=== PATIENT | female | born 1980 | race Caucasian/White ===

== ENCOUNTER 2017-01-18 10:25 | Emergency (ER) | payer OTHER ==
--- NOTE | ~2017-01-18 | CR63 ---
[facility] A Service of [facility] RADIOLOGY TEXT RESULTS PATIENT: TRINO DUVALL LOCATION: [facility] : 76 UNIT #: [id number] AGE: [address]: Chris Guzman MD SEX: F ORDER DR: [id number] [facility] [address] [place], [place] [address] [id number] MR#: [id number] Acc #: [id number] NAME: RTINO DUVALL. : 1980 SEX: F STUDY DATE/TIME: 01/18/2017 14:09 UNIT: [facility] ROOM: STUDY DESCRIPTION: CR Chest 2 View Attending Physician: Chris Guzman M.D. Ordering Physician: Chris Guzman M.D. MEDICAL IMAGING REPORT This report is preliminary unless electronic signature is present EXAM Chest x-ray HISTORY Cough and shortness of breath, onset today. TECHNIQUE 2 views of the chest were obtained. COMPARISON STUDIES 09/08/2015. FINDINGS PA and lateral examination of the chest upright shows a good expansion of the parenchyma with a normal distribution of the pulmonary vascularity. There is no indication of congestion, effusion, infiltrate, tumor, or nodular density. The pleural reflections and diaphragmatic contours are normal. The cardiac silhouette and mediastinal anatomy is within normal limits. IMPRESSION Normal chest. Dictated by... Marek Mariano M.D. THIS IS AN ELECTRONICALLY VERIFIED REPORT Marek Mariano M.D. at 01/22/2017 2:25 PM RLF/pcl TD: 01/18/2017 18:56 [facility] A Service of [facility] RADIOLOGY TEXT RESULTS PATIENT: TRINO DUVALL LOCATION: [facility] : 76 UNIT #: [id number] AGE: [address]: Chris Guzman MD SEX: F ORDER DR: MEGAN #: [id number] MEDICAL IMAGING REPORT Page 1 of 1 COPY
[~2017-01-18 10:25] MED LIST: ACETAMINOPHEN650 M1 PO; ADVAIR 1001 DISK W/D PO; ATIVAN0.5 M1 PO; BACTRIM DS TABL1 TA2 PO; BACTRIM DS TABL1 TAB PO; CLARITIN10 MG PO; DICYCLOMINE HCL20 MG; EC-NAPROSYN500 MG; EC-NAPROSYN500 MG PO; FAMOTIDINE PO; FLEXERIL PO; FLEXERIL10 MG PO; IBUPROFEN PO; IBUPROFEN800 MG PO; KEFLEX PO; KETOPROFEN PO; LEVAQUIN750 MG PO; LORTAB 5/500 TA1 TA1 PO; LORTAB 7.51 TAB 7.5/ PO; MEDROL PO; MIRALAX255 GM; NAPROSYN500 MG PO; PHENERGAN25 M1 PO; PRILOSEC20 MG PO; PYRIDIUM PO; ROBITUSSIN DM T10 ML PO; VICODIN 5/500 T1 TAB PO; VOLTAREN50 MG PO; ZITHROMAX PO; ZITHROMAX1 G/PKT PO; ZOLOFT PO; ZOLOFT50 MG PO
== END 2017-01-18 15:32 | disposition home or self-care (01) ==
LOC: CED 10:25
DX: J32.9 Chronic sinusitis, unspecified (principal); F41.9 Anxiety disorder, unspecified; F17.200 Nicotine dependence, unspecified, uncomplicated
CPT/HCPCS: 71020; 99283